=== PATIENT | female | born 1970 | race Hispanic/Latino ===

== ENCOUNTER → 2019-09-16 | Outpatient (CLI) | payer BC ==
[~2019-09-16] MED LIST: PANTOPRAZOLE SO40 MG PO; PEPCID20 MG PO
== END ==
LOC: MAMMO 13:52
PROVIDERS: ATTEND Obstetrics & Gynecology
DX: Z12.31 Encounter for screening mammogram for malignant neoplasm of breast (principal)
CPT/HCPCS: 77067